=== PATIENT | female | born 1960 | race Caucasian/White ===

== ENCOUNTER 2017-03-22 15:22 | Emergency (ER) | payer BC ==
[2017-03-22 15:34] VITALS: BP 145/78
--- NOTE | 2017-03-22 16:48 | UC ---
Throat Pain/Nasal Uzair HPI - HPI Summary HPI Summary: THREE WEEKS OF SINUS CONGESTION AND PRODUCTIVE COUGH. NO FEVER. - History of Current Complaint Chief Complaint: UCRespiratory Stated Complaint: COUGH Time Seen by Provider: 03/22/17 16:27 Hx Obtained From: Patient Onset/Duration: Sudden Onset, Lasting Weeks, Still Present Severity: Moderate Cough: Productive Associated Signs & Symptoms: Positive: Hoarseness, Sinus Discomfort - Epiglottits Risk Factors Epiglottis Risk Factors: Negative - Allergies/Home Medications Allergies/Adverse Reactions: Allergies Allergy/AdvReac Type Severity Reaction Status Date / Time No Known Allergies Allergy Verified 03/22/17 15:33 Home Medications: Home Medications Citalopram TAB* [CeleXA TAB*] 5 mg PO DAILY 03/22/17 [History Confirmed 03/22/17 ] PMH/Surg Hx/FS Hx/Imm Hx Previously Healthy: Yes - Surgical History Surgical History: Yes Surgery Procedure, Year, and Place: cyst removal from ovary. raheem. appy - Social History Occupation: Employed Full-time Lives: With Family Alcohol Use: Occasionally Substance Use Type: None Smoking Status (MU): Never Smoked Tobacco Review of Systems Constitutional: Negative Skin: Negative Eyes: Negative ENT: Negative Respiratory: Negative Cardiovascular: Negative Gastrointestinal: Negative Genitourinary: Negative Motor: Negative Neurovascular: Negative Musculoskeletal: Arthralgia, Myalgia Neurological: Negative Psychological: Negative All Other Systems Reviewed And Are Negative: Yes Physical Exam Triage Information Reviewed: Yes Appearance: Well-Appearing, No Pain Distress, Well-Nourished Vital Signs: Initial Vital Signs Temp 97.4 F 03/22/17 15:30 Pulse 82 03/22/17 15:30 Resp 16 03/22/17 15:30 BP 145/78 03/22/17 15:30 Pulse Ox 98 03/22/17 15:30 Vital Signs Reviewed: Yes ENT: Positive: Hearing grossly normal, Pharynx normal, Nasal congestion, TM bulging, TM dull Dental Exam: Normal Neck exam: Normal Neck: Positive: Supple, Nontender, No Lymphadenopathy Respiratory Exam: Other - COUGH Respiratory: Positive: Chest non-tender, Lungs clear, Normal breath sounds, No respiratory distress, No accessory muscle use Cardiovascular Exam: Normal Cardiovascular: Positive: RRR, No Murmur, Pulses Normal, Brisk Capillary Refill Abdominal Exam: Normal Musculoskeletal Exam: Normal Musculoskeletal: Positive: Strength Intact, ROM Intact Neurological Exam: Normal Psychological Exam: Normal Psychological: Positive: Normal Response To Family Skin Exam: Normal Throat Pain/Nasal Course/Dx - Differential Dx/Diagnosis Differential Diagnosis/HQI/PQRI: Pharyngitis, Sinusitis, URI Provider Diagnoses: SINUSITIS; BRONCHITIS Discharge - Discharge Plan Condition: Stable Disposition: HOME Prescriptions: Amoxicillin/Clavulanate TAB* [Augmentin TAB 875*] 875 mg PO BID #20 tab Benzonatate CAP* [Tessalon 100 MG CAP*] 100 mg PO TID #18 cap Patient Education Materials: Sinusitis (ED), Acute Bronchitis (ED) Referrals: Nevin Murrieta MD [Primary Care Provider] -
== END 2017-03-22 16:40 | disposition home or self-care (01) ==
LOC: UCEAST 15:22
DX: J32.9 Chronic sinusitis, unspecified (principal); J40 Bronchitis, not specified as acute or chronic
CPT/HCPCS: 99212; G0463

== ENCOUNTER 2017-09-26 07:17 | Emergency (ER) | payer BC, OTHER ==
[2017-09-26 07:30] VITALS: BP 140/75
--- NOTE | 2017-09-26 07:55 | UC ---
Respiratory Complaint HPI - HPI Summary HPI Summary: COUGH X 30 DAYS NO FEVER, NO CHILLS, COUGH IS DRY , NO NASAL CONGESTION, NO PND NO WHEEZING , NO SOB , + CHEST TIGHTNESS - History of Current Complaint Chief Complaint: UCRespiratory Stated Complaint: COUGH/CONGESTION Time Seen by Provider: 09/26/17 07:34 Hx Obtained From: Patient Onset/Duration: Gradual Onset, Lasting Days - 30 Timing: Constant Severity Initially: Moderate Severity Currently: Moderate Pain Intensity: 0 Pain Scale Used: 0-10 Numeric Character: Cough: Nonproductive Aggravating Factors: Exertion, Deep Breaths Alleviating Factors: Nothing Associated Signs And Symptoms: Negative: Dyspnea, Fever, Chills, Pleuritic Chest Pain, Wheezing, Hemoptysis, URI, Nasal Congestion, Hoarseness, Sinus Discomfort - Allergies/Home Medications Allergies/Adverse Reactions: Allergies Allergy/AdvReac Type Severity Reaction Status Date / Time No Known Allergies Allergy Verified 09/26/17 07:30 PMH/Surg Hx/FS Hx/Imm Hx Previously Healthy: Yes - Surgical History Surgical History: Yes Surgery Procedure, Year, and Place: cyst removal from ovary. raheem. appy - Family History Known Family History: Negative: Diabetes - Social History Alcohol Use: Occasionally Substance Use Type: None Smoking Status (MU): Never Smoked Tobacco Review of Systems Constitutional: Negative Skin: Negative Eyes: Negative ENT: Negative Respiratory: Cough Cardiovascular: Negative Gastrointestinal: Negative Genitourinary: Negative Is Patient Immunocompromised?: No All Other Systems Reviewed And Are Negative: Yes Physical Exam Triage Information Reviewed: Yes Appearance: Well-Appearing, No Pain Distress, Well-Nourished Vital Signs: Initial Vital Signs Temp 98.3 F 09/26/17 07:26 Pulse 91 09/26/17 07:26 Resp 16 09/26/17 07:26 BP 140/75 09/26/17 07:26 Pulse Ox 98 09/26/17 07:26 Vital Signs Reviewed: Yes Eyes: Positive: Conjunctiva Clear ENT: Positive: Normal ENT inspection, Hearing grossly normal, Pharynx normal Neck exam: Normal Neck: Positive: Supple, Nontender, No Lymphadenopathy Respiratory: Positive: Chest non-tender, Lungs clear, Normal breath sounds, No respiratory distress Cardiovascular: Positive: RRR, No Murmur, Pulses Normal Abdominal Exam: Normal Skin Exam: Normal UC Diagnostic Evaluation - Laboratory O2 Sat by Pulse Oximetry: 98 Respiratory Course/Dx - Differential Dx/Diagnosis Provider Diagnoses: VIRAL BRONCHITIS Discharge - Discharge Plan Condition: Stable Disposition: HOME Prescriptions: Albuterol HFA INHALER* [Ventolin HFA Inhaler*] 2 puff INH Q6H PRN #1 mdi PRN Reason: Wheezing Benzonatate [TESSALON 200 MG CAP] 200 mg PO Q8H #21 cap Patient Education Materials: Acute Bronchitis (ED) Referrals: Nevin Murrieta MD [Primary Care Provider] - If Needed Additional Instructions: viral bronchitis no need for antibiotics
== END 2017-09-26 07:44 | disposition home or self-care (01) ==
LOC: UCCORT 07:17
DX: J20.8 Acute bronchitis due to other specified organisms (principal)
CPT/HCPCS: 99212; G0463

== ENCOUNTER 2019-11-24 11:35 | Emergency (ER) | payer OTHER ==
[2019-11-24 11:55] VITALS: BP 137/70
[2019-11-24] MEDS ORDERED: Fluorescein Sodium TOPICAL* 1 MG TEST STRIP OPHTHALMIC ONE (12:29)
--- NOTE | 2019-11-24 12:34 | UC ---
Eye Complaint HPI - HPI Summary HPI Summary: 59 yo woman with hx of dry eye, with more recurrent eye irritation in recent months. This morning had foreign body sensation in her eye, flushed it out at work but comes for assessment due to eye swelling and persistent drainage. Does regular eye checks with Dr. Franks. - History of Current Complaint Chief Complaint: UCEye Stated Complaint: FOREIGN BODY IN EYE Time Seen by Provider: 11/24/19 12:27 Hx Obtained From: Patient Onset/Duration: Sudden Onset, Lasting Hours Timing: Constant Severity Initially: Moderate Severity Currently: Mild Pain Intensity: 6 Location of Injury: Conjunctiva, Eye Lid (lower), Eye Lid (upper) Character: Throbbing Aggravating Factor(s): Light Alleviating Factor(s): Nothing Associated Signs And Symptoms: Positive: Drainage (Clear) - Risk Factors Penetrating Injury Risk Factor: Negative Globe Rupture Risk Factors: Negative Acute Glaucoma Risk Factors: Negative Optic Artery Occlusion Risk Factors: Negative - Allergies/Home Medications Allergies/Adverse Reactions: Allergies Allergy/AdvReac Type Severity Reaction Status Date / Time No Known Allergies Allergy Verified 11/24/19 11:56 Home Medications: Home Medications Aspirin-Caffeine [Phuong Back & Body Pain Ex] 1 tab PO QID PRN 02/04/14 [History Confirmed 11/24/19] Albuterol HFA INHALER* [Ventolin HFA Inhaler*] 2 puff INH Q6H PRN #1 mdi [Rx Confirmed 11/24/19] Cholecalciferol (Vitamin D3) [Vitamin D3] 2,000 unit PO DAILY 11/24/19 [History Confirmed 11/24/19] Cyanocobalamin TAB* [Vitamin B12 TAB*] 500 mcg PO DAILY 11/24/19 [History Confirmed 11/24/19] Polymyx/Trimethoprim OPTH* [Polytrim OPHTH*] 2 drop RIGHT EYE Q3H #1 btl [Rx] PMH/Surg Hx/FS Hx/Imm Hx Previously Healthy: Yes Respiratory History: Asthma - mild - Surgical History Surgical History: Yes Surgery Procedure, Year, and Place: cyst removal from ovary. raheem. appy - Family History Known Family History: Positive: Diabetes, Other - father has Parkinson's; sister of gastric cancer - Social History Occupation: Employed Full-time Lives: Alone Alcohol Use: Rare Substance Use Type: None Smoking Status (MU): Never Smoked Tobacco Review of Systems All Other Systems Reviewed And Are Negative: Yes Constitutional: Positive: Negative Skin: Positive: Negative Eyes: Positive: Blurred Vision, Eye Redness ENT: Positive: Negative Respiratory: Positive: Negative Cardiovascular: Positive: Negative Gastrointestinal: Positive: Negative Genitourinary: Positive: Negative Motor: Positive: Negative Neurovascular: Positive: Negative Musculoskeletal: Positive: Negative Neurological/Mental Status: Positive: Negative Psychological: Positive: Negative Is Patient Immunocompromised?: No Physical Exam Triage Information Reviewed: Yes Appearance: Well-Appearing, Pain Distress - mild Vital Signs: Initial Vital Signs Temp 99.6 F 11/24/19 11:52 Pulse 82 11/24/19 11:52 Resp 16 11/24/19 11:52 BP 137/70 11/24/19 11:52 Pulse Ox 98 11/24/19 11:52 Eye Exam: Other - Upper and lower lid swelling right eye, mild. FITZ, negative fluorescein uptake. Eye flushed with 10 cc normal saline. Eyes: Positive: Conjunctiva Inflamed ENT: Positive: Pharynx normal Respiratory: Positive: Lungs clear, Normal breath sounds Cardiovascular: Positive: RRR, No Murmur Neurological: Positive: Alert Psychological Exam: Normal Skin Exam: Normal Eye Complaint Course/Dx - Course Course Of Treatment: Eye flushed, no foreign body or corneal abrasion seen. - Differential Dx/Diagnosis Differential Diagnosis/HQI/PQRI: Conjunctivitis, Corneal Abrasion, Foreign Body Provider Diagnosis: Foreign body of right eye Discharge ED - Sign-Out/Discharge Documenting (check all that apply): Patient Departure All imaging exams completed and their final reports reviewed: No Studies - Discharge Plan Condition: Stable Disposition: HOME Prescriptions: Polymyx/Trimethoprim OPTH* [Polytrim OPHTH*] 2 drop RIGHT EYE Q3H #1 btl Patient Education Materials: Eye Foreign Body (ED) Referrals: Nevin Murrieta MD [Primary Care Provider] - Additional Instructions: The foreign body in your eye must have flushed out, and you do not have evidence of corneal abrasion. Because of the redness and amount of irritation, use antibiotic eye drops every 3 hours while awake until the redness resolves, probabaly in 1-2 days. Cool compress the eye to decrease swelling today, but warm moist heat to the eyes for 5 minutes in the morning can help to relieve the dryness. As reviewed, ketoroac (Zaditor) eye drops can help with the irritation from dry eyes. - Billing Disposition and Condition Condition: STABLE Disposition: Home
== END 2019-11-24 13:22 | disposition home or self-care (01) ==
LOC: UCEAST 11:35
DX: T15.81XA Foreign body in other and multiple parts of external eye, right eye, initial encounter (principal); J45.909 Unspecified asthma, uncomplicated; X58.XXXA Exposure to other specified factors, initial encounter; Y92.9 Unspecified place or not applicable; Z79.82 Long term (current) use of aspirin
CPT/HCPCS: 99212; A9270-GY; G0463